=== PATIENT | male | born 1990 | race Caucasian/White ===

== ENCOUNTER 2017-10-13 22:05 | Emergency (ER) | payer SELFPAY ==
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
[2017-10-13 22:32] VITALS: BMI 18.8
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
[2017-10-14 01:48] VITALS: BP 120/82; PULSE 78; RESP 17; TEMP 98.1; O2SAT 100
== END 2017-10-14 01:48 | disposition home or self-care (01) ==
LOC: ED 22:05
DX: S00.93XA Contusion of unspecified part of head, initial encounter (principal); Y04.0XXA Assault by unarmed brawl or fight, initial encounter; R51 Headache